=== PATIENT | female | born 1980 | race Caucasian/White ===

== ENCOUNTER 2019-01-30 07:34 | Day surgery (SDC) | payer OTHER | END 2019-01-30 19:00 | disposition home or self-care (01) | LOC: CIR.AMB 07:34 | PROVIDERS: Plastic Surgery | PROC: 0HBV0ZZ Excision of Bilateral Breast, Open Approach (ICD-10-PCS; principal; 2019-01-30 10:00) | DX: N62 Hypertrophy of breast (principal) ==

== ENCOUNTER 2023-11-17 07:48 | Outpatient (CLI) | payer OTHER ==
[2023-11-17 08:24] LABS: URINE APPEARANCE Clear; URINE BILIRRUBIN Negative (NEGATIVE); URINE BLOOD Large; URINE COLOR Yellow; URINE GLUCOSE Negative (NEGATIVE); URINE KETONE Negative (NEGATIVE); URINE LEUKOCYTE Negative; URINE NITRATE Negative; URINE PROTEIN Trace (NEGATIVE); URINE UROBILINOGEN 0.2 E.U./dl
[2023-11-17 08:28] LABS: URINE BACTERIA 1237.2 uL (0.0-1933); URINE EPITHELIAL CELLS 37.2 uL (0.0-38.8)
[2023-11-17 08:40] LABS: HEMATOCRIT 40.2 % (36.0-45.00); HEMOGLOBIN 13.8 g/dL (12.0-15.00); MEAN CELL VOLUME 91.7 fL (80.00-100.00); MEAN CORPUSCULAR HEMOGLOBIN 31.5 pg (27.00-32.0); MEAN CORPUSCULAR HGB CONC 34.4 g/dl (32.0-36.0); PLATELET COUNT 327 K/uL (150-450); RED BLOOD COUNT 4.38 M/uL (4.00-6.00); RED CELL DISTRIBUTION WIDTH 12.8 % (11.5-14.5)
[2023-11-17 09:38] LABS: ALBUMIN 3.8 gm/dL (3.4-5.0); BILIRUBIN TOTAL 0.71 mg/dL (0.3-1.2); CALCIUM 8.7 mg/dL (8.5-10.1); CHOL HDL RATIO 4.3 (0-5.0); CREATININE SERUM 0.64 mg/dL (0.55-1.02); GFR 101.28; GLOBULINA 3.9 G/DL (2.4-3.5); POTASSIUM 4.04 mEq/L (3.5-5.1); T4 FREE 0.93 NG/ML (0.76-1.46); TOTAL PROTEIN 7.7 gm/dL (6.4-8.2); TSH 1.19 uIU/mL (0.358-3.74)
[2023-11-17 14:22] LABS: ob NEGATIVE (NEGATIVE)
== END 2023-11-17 07:55 | disposition home or self-care (01) ==
LOC: LAB 07:48
DX: D64.9 Anemia, unspecified (principal); E11.65 Type 2 diabetes mellitus with hyperglycemia; E78.00 Pure hypercholesterolemia, unspecified; E03.9 Hypothyroidism, unspecified; N39.0 Urinary tract infection, site not specified; E55.9 Vitamin D deficiency, unspecified; Z12.11 Encounter for screening for malignant neoplasm of colon

== ENCOUNTER 2023-11-17 08:25 | Outpatient (CLI) | payer OTHER | END 2023-11-17 08:29 | disposition home or self-care (01) | LOC: MAMO-SONO 08:25 | DX: N60.19 Diffuse cystic mastopathy of unspecified breast (principal) ==

== ENCOUNTER 2024-12-11 09:25 | Outpatient (CLI) | payer OTHER | END 2024-12-11 09:27 | disposition home or self-care (01) | LOC: MAMO-SONO 09:25 | PROVIDERS: ATTEND Obstetrics & Gynecology Gynecology | DX: Z12.31 Encounter for screening mammogram for malignant neoplasm of breast (principal) ==